=== PATIENT | female | born 1980 | race Caucasian/White ===

== ENCOUNTER 2018-04-05 11:35 | Observation (INO) | payer BC ==
[2018-04-05] MEDS ORDERED: LIDOCAINE 1% 2 ML INJ ID PRN (12:08)
[2018-04-05] MEDS ORDERED: GABAPENTIN 300 MG CAP PO ONE (12:08)
[2018-04-05] MEDS ORDERED: LR 1,000 ML IV ONE (12:08)
[2018-04-05] MEDS ORDERED: ACETAMINOPHEN 500 MG TAB PO ONE (12:08)
[2018-04-05] MEDS ORDERED: PHENAZOPYRIDINE HCL 200 MG TAB PO ONE (12:08)
[2018-04-05] MEDS ORDERED: ceFAZolin 2 GM/DEXTROSE 100 ML IV ONE (12:08)
[2018-04-05] MEDS ORDERED: ACETAMINOPHEN 500 MG TAB ONE (12:29)
--- NOTE | 2018-04-05 14:19 | PDHPUP ---
History & Physical Update H&P update statement: This history and physical update is based on an assessment of the patient which was completed after admission or registration (within 24 hours), but prior to the surgery/procedure. H&P update: no change in patient's condition since H&P completed
--- NOTE | 2018-04-05 14:41 | PDANEPAE ---
ANE History of Present Illness dysmenorrhea, endometriosis, here for robotic hysterectomy ANE Past Medical History - Cardiovascular History Hx Hypertension: No Hx Arrhythmias: No Hx Chest Pain: No Hx Coronary Artery / Peripheral Vascular Disease: No Hx CHF / Valvular Disease: No Hx Palpitations: No - Pulmonary History Hx COPD: No Hx Asthma/Reactive Airway Disease: No Hx Recent Upper Respiratory Infection: No Hx Oxygen in Use at Home: No Hx Sleep Apnea: No Sleep Apnea Screening Result - Last Documented: Negative - Neurologic History Hx Cerebrovascular Accident: No Hx Seizures: No Hx Dementia: No - Endocrine History Hx Diabetes: No Endocrine History Comment: hx of hyperthyroidism with surgical repair - Renal History Hx Renal Disorders: No - Liver History Hx Hepatic Disorders: No - Neurological & Psychiatric Hx Hx Neurological and Psychiatric Disorders: No - Cancer History Hx Cancer: No - Congenital Disorder History Hx Congenital Disorders: No - GI History Hx Gastrointestinal Disorders: No - Other Health History Other Health History: wears glasses/ contacts. dry skin - Chronic Pain History Chronic Pain: Yes (abd pain from endometriosis) - Surgical History Prior Surgeries: thyroid nodule removed. elbow surgery. abd surgeries as teen. appy. wisdom teeth ANE Review of Systems Review of Systems: - Exercise capacity METS (RN): 4 METS ANE Patient History - Allergies Allergies/Adverse Reactions: bacitracin [From Neosporin ([id number])] Allergy (Verified 03/17/18 11:22) Rash neomycin [From Neosporin ([id number])] Allergy (Verified 03/17/18 11:22) Rash polymyxin B [From Neosporin ([id number])] Allergy (Verified 03/17/18 11:22) Rash - Home Medications Home Medications: traMADol [Ultram 50 mg (*)] 50 mg PO Q4 PRN 03/17/18 [Last Taken 04/01/18] - NPO status NPO Since - Liquids (Date): 04/05/18 NPO Since - Liquids (Time): 09:45 NPO Since - Solids (Date): 04/04/18 NPO Since - Solids (Time): 19:00 - Smoking Hx Smoking Status: Never smoked - Family Anes Hx Family Hx Anesthesia Complications: none ANE Labs/Vital Signs - Vital Signs Blood Pressure: 133/92 Heart Rate: 102 Respiratory Rate: 16 O2 Sat (%): 93 Height: 161.29 cm Weight: 95.708 kg ANE Physical Exam - Airway Neck exam: FROM Mallampati Score: Class 3 Mouth exam: normal dental/mouth exam - Pulmonary Pulmonary: no respiratory distress, no rales or rhonchi - Cardiovascular Cardiovascular: regular rate and rhythym, no murmur, rub, or gallop - ASA Status ASA Status: II ANE Anesthesia Plan Anesthesia Plan: general endotracheal anesthesia Total IV Anesthesia: No
[2018-04-05] MEDS ORDERED: MIDAZOLAM 2 MG/2 ML VIAL IVP ONE (14:42)
[2018-04-05] MEDS ORDERED: LIDOCAINE 2% 100 MG/5 ML SYR ONE (14:59)
[2018-04-05] MEDS ORDERED: PROPOFOL 200 MG/20 ML VIAL ONE ×2 (14:59→16:18)
[2018-04-05] MEDS ORDERED: fentaNYL 250 MCG/5 ML INJ ONE (14:59)
[2018-04-05] MEDS ORDERED: ROCURONIUM 50 MG/5 ML VIAL ONE ×2 (14:59→15:56)
[2018-04-05] MEDS ORDERED: HYDROmorphONE/DILAUDID 2 MG/ML INJ ONE (15:38)
[2018-04-05] MEDS ORDERED: KETOROLAC 30 MG/1 ML SDV ONE (15:38)
[2018-04-05] MEDS ORDERED: ONDANSETRON 4 MG/2 ML VIAL ONE (15:38)
[2018-04-05] MEDS ORDERED: SUGAMMADEX SODIUM 200 MG/2 ML VIAL IVP ONE (15:38)
[2018-04-05] MEDS ORDERED: DEXAMETHASONE 4 MG/ML VIAL ONE (15:38)
[2018-04-05] MEDS ORDERED: ONDANSETRON 4 MG/2 ML VIAL IVP PRN (16:38)
[2018-04-05] MEDS ORDERED: ONDANSETRON DISINTEGRATING 4 MG TAB PO PRN (16:38)
[2018-04-05] MEDS ORDERED: HYDROCODONE/APAP 5/325 TAB PO PRN (16:38)
[2018-04-05] MEDS ORDERED: HYDROmorphONE/DILAUDID 1 MG/ML INJ IVP PRN (16:38)
[2018-04-05] MEDS ORDERED: PROMETHAZINE HCL 25 MG/ML INJ IVP PRN ×2 (16:38→16:39)
--- NOTE | 2018-04-05 16:38 | POSTOPPROG ---
Post Op Note Date of Operation: 04/05/18 Surgeon: Kenrick Oh Coal Hiker: Kelsy Valdez Anesthesia: GET(General Endotracheal) Pre-op Diagnosis: Endometriosis Post-op Diagnosis: Same Procedure: Robotic hyst/RSO, bilat ureterolysis, excise endo, TOT sling, cysto Findings: No bladder, ureteral, or urethral injury Inf/Abcess present in the surg proc area at time of surgery?: No EBL: Minimal Complications: None
[2018-04-05] MEDS ORDERED: MEPERIDINE 25 MG/0.5 ML AMP IVP PRN (16:39)
[2018-04-05] MEDS ORDERED: oxyCODONE IR 5 MG TAB PO PRN (16:39)
[2018-04-05] MEDS ORDERED: HYDROmorphONE/DILAUDID 2 MG/ML INJ IVP PRN (16:39)
[2018-04-05] MEDS ORDERED: LR 500 ML IV PRN (16:39)
[2018-04-05] MEDS ORDERED: NALOXONE HCL 0.4 MG/ML INJ IVP PRN (16:39)
[2018-04-05] MEDS ORDERED: DIAZEPAM 5 MG/ML 1 ML SYR IVP PRN (16:39)
[2018-04-05] MEDS ORDERED: fentaNYL 100 MCG/2 ML INJ IVP PRN (16:39)
--- NOTE | 2018-04-05 16:51 | POSTANESTH ---
Post Anesthetic Evaluation Cardiovascular Status: Normal, Stable Respiratory Status: Normal, Stable Level of Consciousness/Mental Status: Can Participate in Eval, Moderately Sleepy Pain Control: Adequate, Prn Tx Ordered Nausea/Vomiting Control: Adequate, Prn Tx Ordered Complications Possibly Related to Anesthesia: None Noted
[2018-04-05] MEDS ORDERED: LR 1,000 ML IV SCH (17:00)
--- NOTE | 2018-04-05 17:48 | GOP ---
[f rep st] OPERATIVE REPORT DATE OF OPERATION: 04/05/2018 SURGEON: Kenrick Oh MD NECKTIE OPERATOR POCKETS AND PIECES: Kelsy Valdez CFA ANESTHESIA: GETA PREOPERATIVE DIAGNOSIS: 1. Endometriosis. 2. Dysmenorrhea. 3. Menorrhagia. 4. Uterine prolapse. 5. Stress urinary incontinence. POSTOPERATIVE DIAGNOSIS: 1. Endometriosis. 2. Dysmenorrhea. 3. Menorrhagia. 4. Uterine prolapse. 5. Stress urinary incontinence. PROCEDURE PERFORMED: 1. Robotic-assisted total laparoscopic hysterectomy, bilateral salpingectomy, right oophorectomy. 2. Excision of endometriosis in the anterior and posterior cul-de-sac, bilateral pelvic side sorensen. 3. Bilateral ureterolysis. 4. Uterosacral ligament colpopexy. 5. Transobturator sling. 6. Cystoscopy. 7. Left ovariopexy. FINDINGS: SPECIMENS: 1. Uterus, bilateral tubes, right ovary. 1. Pelvic peritoneum with endometriosis. 2. ESTIMATED BLOOD LOSS: Scant. DESCRIPTION OF PROCEDURE: The patient was taken to the operating room where she was identified. General anesthesia was administered and found to be adequate. She was placed in the lithotomy position and prepared and draped in normal sterile fashion. A Sanchez catheter was placed in her bladder. A Whispering Gibbon Care uterine manipulator was placed into the endometrial cavity and sutured to the cervix. An 8 mm infraumbilical incision was made with the scalpel. The Veress needle with the CO2 gas flowing was advanced into the peritoneal cavity. The abdomen was then insufflated with carbon dioxide gas. The 8 mm trocar, followed by the laparoscope were then inserted. The upper abdomen was unremarkable. There were was no evidence of endometriosis on either diaphragm, liver, gallbladder, stomach or upper abdominal bowel. Two lateral ports were placed on the right and 1 on the left under direct visualization. She then was placed in Trendelenburg position and the da Anatoly robot docked on the left side. The instruments were then brought into the abdominal cavity under direct visualization. The right ovary had several lesions of endometriosis. The left ovary was relatively clear with just 2 small spots. There was endometriosis in the posterior cul-de-sac, both pelvic sidewalls, as well as the anterior cul-de- sac. The posterior cul-de-sac peritoneum from the distal rectum up to the cervix and laterally to the uterosacral ligaments was then completely excised. The left fallopian tube was along the mesosalpinx. The utero-ovarian ligament, followed by the round ligament were then cauterized and transected. The anterior leaf of the broad ligament was then incised over the left uterine vessels and across the cervix. The bladder was gently dissected off the cervix and upper vagina. The left uterine vasculature was then cauterized and transected. The right round ligament was divided. The anterior leaf of the broad ligament was then incised towards the bifurcation of the right common iliac vessels. A window was created in the posterior leaf anterior to the right ureter to skeletonize the infundibulopelvic vessels. They were then cauterized and transected. The right uterine vasculature was then cauterized and transected. A bilateral ureterolysis was required given the endometriosis overlying both ureters. The peritoneum at the pelvic brims was incised. The ureter was gently dissected free and lateralized off the overlying peritoneum and endometriosis from the pelvic brim down to the bladder. Once this accomplished, the entire pelvic sidewall peritoneum was completely excised. A circumferential colpotomy incision was then made with the hot paresh. All specimens were removed through the vagina. The anterior cul-de-sac peritoneum was then excised and removed. The vaginal cuff was closed with a running suture of 0 V-Loc 180. A bilateral uterosacral ligament colpopexy was performed by attaching the lateral aspects of the vaginal cuff to the ipsilateral uterosacral ligaments into the cock coccygeal sacrospinous ligament complexes. The pelvis was then copiously irrigated with sterile saline, and hemostasis was present. A left ovarian pexy was then performed by attaching the left ovary to the left round ligament near the internal inguinal ring with 3-0 Vicryl suture. The robot was then undocked. The incisions were closed with 4-0 Monocryl and Steri-Strips. A mid urethral incision was made with a scalpel. Tunnels were created bilaterally out toward the obturator internus muscles. Skin incisions were made over the obturator notches. The Halo trocar was placed through the left skin incision, redirected around the ischial pubic rami and out through the vaginal incision using a vaginal finger as a guide. The sling was then attached and brought out along the same course. The exact same procedure was performed on the patient's right side. The sling was then adjusted to allow a small mid urethral gap. The vaginal epithelium was closed with 2-0 Vicryl, the skin with 4-0 Monocryl. Cystoscopy was then performed. Both ureters had vigorous jets of urine. There was no evidence of bladder, nor urethral injury seen. There was no mesh nor suture within the bladder, nor urethra. No obvious pathology was seen within the bladder. Anesthesia was then reversed. The patient taken to PACU awake, in stable condition. COMPLICATIONS: None. DISPOSITION: Patient stable to PACU. /[id number]/MODL MTDD
[2018-04-05] MEDS: OXYCODONE/APAP 5/325 TAB PO PRN (19:33)
[2018-04-05] MEDS: SIMETHICONE 80 MG TAB CHEW PO SCH (21:57)
[2018-04-05] MEDS: GABAPENTIN 300 MG CAP PO SCH (21:57)
[2018-04-05] MEDS: DOCUSATE SODIUM 100 MG CAP PO SCH (21:57)
[2018-04-05] MEDS: KETOROLAC 30 MG/1 ML SDV IVP SCH (22:23)
[2018-04-06] MEDS: OXYCODONE/APAP 5/325 TAB PO PRN ×2 (01:04→08:09)
[2018-04-06] MEDS: SIMETHICONE 80 MG TAB CHEW PO SCH ×2 (03:28→11:10)
[2018-04-06] MEDS: KETOROLAC 30 MG/1 ML SDV IVP SCH ×2 (04:34→11:10)
[2018-04-06 05:38] LABS: PLATELET COUNT 194 10^3/uL (150-400)
[2018-04-06 06:26] VITALS: BP 113/67
[2018-04-06] MEDS: GABAPENTIN 300 MG CAP PO SCH (08:09)
[2018-04-06] MEDS: DOCUSATE SODIUM 100 MG CAP PO SCH (08:09)
--- NOTE | 2018-04-07 10:14 | GDS ---
[f rep st] DISCHARGE SUMMARY DISCHARGE DIAGNOSES: 1. Endometriosis. 2. Pelvic pain. 3. Stress urinary incontinence. PROCEDURES: 1. Robotic-assisted total laparoscopic hysterectomy, bilateral salpingectomy, right oophorectomy. 2. Excision of endometriosis. 3. Uterosacral ligament colpopexy. 4. Bilateral ureterolysis. 5. Left ovariopexy. 6. Transobturator sling. 7. Cystoscopy. HISTORY: The patient has a long history of pelvic pain, secondary to endometriosis. She also had st ress urinary incontinence. She was taken to the operating room on 04/05/2018, where she underwent th e above-mentioned procedures without complications. Postoperative course was uneventful. The morning after surgery, she was ambulating, voiding, and leo erating a general diet. She was discharged home on Percocet and ibuprofen for pain. [facility]. /[id number]/MODL
== END 2018-04-06 11:30 | disposition home or self-care (01) ==
LOC: F3E 11:43 → FOB 14:07 → F3E 15:54 → FOB 18:15
PROVIDERS: ADMIT Obstetrics & Gynecology; ATTEND Obstetrics & Gynecology
DX: N80.9 Endometriosis, unspecified (principal); N39.3 Stress incontinence (female) (male); R10.2 Pelvic and perineal pain
CPT/HCPCS: 57288; 57425; 58571; 58662; 58679; G0378; C1771; J0690; J1100; J1170; J1885; J2001; J2250; J2405; J2704; J3010